=== PATIENT | male | born 1965 | race Caucasian/White ===

== ENCOUNTER 2021-01-08 07:39 | Outpatient (CLI) | payer OTHER, SELFPAY ==
--- NOTE | ~2021-01-08 | XR_ITS ---
XR shoulder RT min 2V DATE: 01/08/2021 08:06 INDICATION: Right shoulder pain for 6 months TECHNIQUE: 4 views COMPARISON: None FINDINGS: No fracture or dislocation, periosteal reaction or bone destruction or abnormal soft tissue calcification. IMPRESSION: No significant abnormality Reviewed, dictated and finalized at location A. IMPRESSION: No significant abnormality
== END 2021-01-08 07:40 | disposition home or self-care (01) ==
LOC: CHSIMG 07:43
PROVIDERS: PCP Internal Medicine; Visit Provider Internal Medicine
DX: M25.511 Pain in right shoulder (principal)
CPT/HCPCS: 73030

== ENCOUNTER → 2021-01-20 17:17 | Outpatient (CLI) | payer OTHER, SELFPAY ==
--- NOTE | ~2021-01-20 | MR_ITS ---
EXAMINATION: MR shoulder RT wo con DATE: 01/20/2021 18:30 INDICATION: Right shoulder pain TECHNIQUE: Magnetic resonance imaging (MRI) of the right shoulder was performed without intravenous c ontrast. Sequences included axial PD-weighted FS FSE, coronal oblique PD-weighted FS FSE, coronal obl ique T2-weighted FS FSE, sagittal PD-weighted FS FSE, and sagittal T1-weighted SE. COMPARISON: None. FINDINGS: Coracoacromial arch: The acromion undersurface is curved in morphology (type II). The coracoacromial ligament is normal. M ild acromioclavicular osteoarthritis. Rotator cuff: The supraspinatus, infraspinatus and teres minor tendons are normal. The subscapularis tendon is norm al. Normal rotator cuff muscle bulk and signal. Biceps tendon, glenoid labrum and glenohumeral cartilage: Long head of the biceps tendon is normal. There is a small tear at the 12:00 position of the glenoid labrum. Jagged linear increased signal at the anterosuperior labrum which appears to extend through t he substance of the labrum as opposed to along the chondral labral interface and would favor anterior extension of the labral tear over a normal sublingual foramen. Glenohumeral cartilage is normal. Fluid: Physiologic amount of fluid in the glenohumeral joint and biceps tendon sheath. No loose osteochondra l bodies. No abnormal fluid signal in the subacromial/subdeltoid bursa to suggest bursitis. Bones: Low signal intensity bone island at the base of the acromion. Normal marrow signal with no edema, fra cture or abnormal marrow replacing process. IMPRESSION: 1. Superior, anterior to posterior tear of the glenoid labrum (SLAP tear) at the 12:00 position of th e glenoid labrum which appears to extend to the 2:00 position of the anterosuperior labrum. 2. Mild acromioclavicular osteoarthritis. Reviewed, dictated and finalized at location B. IMPRESSION: 1. Superior, anterior to posterior tear of the glenoid labrum (SLAP tear) at th e 12:00 position of the glenoid labrum which appears to extend to the 2:00 posi tion of the anterosuperior labrum. 2. Mild acromioclavicular osteoarthritis.
== END ==
PROVIDERS: PCP Internal Medicine; Visit Provider Internal Medicine
DX: M19.011 Primary osteoarthritis, right shoulder (principal); S43.431A Superior glenoid labrum lesion of right shoulder, initial encounter; X58.XXXA Exposure to other specified factors, initial encounter
CPT/HCPCS: 73221

== ENCOUNTER 2021-04-20 10:02 | Outpatient (CLI) | payer OTHER, SELFPAY ==
[2021-04-20 11:12] LABS: Influenza A QL RT-PCR Negative (Negative); Influenza B QL RT-PCR Negative (Negative); SARS-CoV-2 RNA PCR Positive (Negative)
== END 2021-04-20 10:03 | disposition home or self-care (01) ==
LOC: CHSLAB 10:05
PROVIDERS: PCP Internal Medicine; Visit Provider Internal Medicine
DX: U07.1 COVID-19 (principal)
CPT/HCPCS: 87502; C9803; U0003; U0005

== ENCOUNTER 2021-05-29 23:32 | Emergency (ER) | payer OTHER, SELFPAY ==
--- NOTE | ~2021-05-29 | XR_ITS ---
EXAMINATION: XR chest 1V portable EXAM DATE: 05/30/2021 01:09 INDICATION: syncope TECHNIQUE: Portable AP frontal chest x-ray was obtained. There is no prior study for comparison. FINDINGS: Right upper lobe granuloma. The lungs are otherwise clear. There are no pleural effusions. The cardiomediastinal silhouette is within normal limits. There is no pneumothorax suspected. The bones and soft tissues are unremarkable. IMPRESSION: No acute cardiopulmonary findings. Reviewed, dictated and finalized at location A. RAL OFFICE SUPERVISOR
--- NOTE | ~2021-05-29 | CT_ITS ---
EXAMINATION: CT brain wo con EXAM DATE: 05/30/2021 01:09 INDICATION: Syncope TECHNIQUE: Spiral CT of the head was performed without contrast. Axial, coronal and sagittal images were reviewed. The dose-length product (DLP) for this examination was 681.00 mGy-cm. The exposure w as tailored according to patient size, and iterative reconstruction (ASIR) was used as additional dos e reduction technique. There is no prior study for comparison. FINDINGS: There is no acute intraparenchymal hemorrhage. No evidence of intraparenchymal brain mass lesion. No evidence of acute infarction. There is no mass effect or midline shift. The ventricles are normal in size. There are no extra-axial collections. There are no acute calvarial fractures. T he orbits are unremarkable. Soft tissue is unremarkable. Mild ethmoid mucoperiosteal thickening. IMPRESSION: No acute intracranial findings. Reviewed, dictated and finalized at location A. CTOR OF ADMISSIONS
[2021-05-29 23:45] VITALS: BP 130/86; PULSE 66; PULSE 70; RESP 18; TEMP 36.6; O2SAT 98
--- NOTE | 2021-05-29 23:45 | ECG_ITS ---
Measurements Intervals [place] Rate: 64 P: 17 MT: 164 QRS: -6 QRSD: 111 T: 21 QT: 416 QTc: 432 Interpretive Statements SINUS RHYTHM INCOMPLETE RIGHT BUNDLE BRANCH BLOCK BASELINE ARTIFACT- I, II, III, AVR, V1-V2 BORDERLINE ECG Electronically Signed On 05-30-2021 6:37:14 WAREHOUSE STOCKER by Waqas Ruiz D.O.
[2021-05-30 00:16] VITALS: BP 120/70; PULSE 63
[2021-05-30 00:17] VITALS: BP 136/75; BP 139/74; PULSE 74; PULSE 82
[2021-05-30] MEDS: SODIUM CHLORIDE 0.9% IV 1,000 ML 999 ML IV CONT (00:49)
[2021-05-30 00:57] LABS: Basophils Absolute Auto 0.09 K/mm3 (0.00-0.10); Basophils Percent Auto 1.3 % (0.0-1.0); Eosinophils Absolute Auto 0.28 K/mm3 (0.02-0.50); Eosinophils Percent Auto 3.9 % (1.0-6.0); Hemoglobin 13.8 g/dL (14.0-18.0); Immature Granulocyte Absolute 0.02 K/mm3 (0.00-0.00); Immature Granulocyte Percent A 0.3 % (0.0-0.0); Lymphocytes Percent Auto 25.3 % (18.0-42.0); Mean Corpuscular HGB Conc 34.5 g/dL (32.0-36.0); Mean Corpuscular Hemoglobin 30.1 pg (27.0-31.0); Mean Corpuscular Volume 87.3 fL (78.0-102.0); Mean Platelet Volume 10.6 fl (8.7-11.0); Monocytes Absolute Auto 0.63 K/mm3 (0.10-0.90); Monocytes Percent Auto 8.9 % (2.0-11.0); Neutrophils Absolute Auto 4.3 K/mm3 (1.7-7.2); Neutrophils Percent Auto 60.3 % (50.0-70.0); Platelet Count Result 187 K/mm3 (150-420); Red Blood Count 4.58 M/mm3 (4.70-6.10); Red Cell Distribution Width 12.5 % (11.6-14.4); White Blood Count 7.1 K/mm3 (4.8-10.8)
--- NOTE | 2021-05-30 01:01 | PC.NURSE ---
Pt to Ct Scan via w/c at this time. No change in condition. Remains improved.
[2021-05-30 01:14] LABS: Alanine Aminotransferase 74 U/L (16-63); Albumin Level 3.5 g/dL (3.4-5.0); Alkaline Phosphatase 99 U/L (46-116); Anion Gap 7 mmol/L (8-16); Aspartate Amino Transferase 53 U/L (15-37); Bilirubin,Total 0.2 mg/dL (0.00-1.00); Blood Urea Nitrogen 20 mg/dL (7-18); Calcium 8.4 mg/dL (8.5-10.1); Carbon Dioxide 30 mmol/L (21-32); Chloride 105 mmol/L (98-108); Estimated CRCL calculation 77 ml/min; Estimated Glomerular Filt Rate > 60; Glucose 112 mg/dL (70-99); Osmolality Calculated 297 mOsm/kg (285-295); Potassium 3.8 mmol/L (3.5-5.1); Sodium 142 mmol/L (136-145); Total Protein 7.2 g/dL (6.4-8.2); Troponin I 8.6 ng/L (0.00-60.4)
[2021-05-30 01:16] LABS: Ethanol < 3 mg/dL (0-6)
--- NOTE | 2021-05-30 01:30 | PC.NURSE ---
Pt Lt antecubital line would not infuse or flush. Second line started in t Rt hand # 20 Gauge.
[2021-05-30 01:54] LABS: Amphetamine Screen Urine Negative (Negative); Barbiturate Screen Urine Negative (Negative); Benzodiazepines Screen Urine Negative (Negative); Cannabinoid Screen Urine Negative (Negative); Cocaine Screen Urine Negative (Negative); Methadone Screen Urine Negative (Negative); Opiate Screen Urine Negative (Negative); Phencyclidine Screen Urine Negative (Negative)
--- NOTE | 2021-05-30 02:14 | ED.SYNCOPE ---
HPI - Syncope General Chief Complaint: Syncope Stated Complaint: Syncopal episode Time Seen by Provider: 05/29/21 23:35 Source: patient and RN notes reviewed Mode of arrival: ambulatory Limitations: no limitations History of Present Illness complaint: loss of consciousness and collapsed Onset (ago): hour(s) (1) Duration of episode: 30 -: second(s) Description of event: other (denied any acute symptoms.) Prodromal symptoms: none Witnessed: No Context: at rest and standing up Injuries sustained associated with event: none Current symptoms: back to baseline History: other (none) Related Data Home Medications Medication Instructions Recorded Confirmed rosuvastatin [Crestor] 20 mg PO DAILY 05/29/21 05/29/21 tadalafil [Cialis] 20 mg PO DAILY PRN 05/29/21 05/29/21 Allergies Allergy/AdvReac Type Severity Reaction Status Date / Time No Known Allergies Allergy Unverified 12/12/17 08:24 Review of Systems Review of Systems: All systems reviewed & are unremarkable except as noted in HPI and below PMFSH Past Medical History Medical History Erectile disorder due to medical condition in male Exam Const: General: healthy appearing, no acute distress and alert Orientation/consciousness: patient oriented x3 HENMT: Head: normal to inspection Ears: external ears normal and TM's normal bilaterally General nose exam: Normal external nose present and Normal nares present Face and sinus: normal facial exam Mouth: Yes lip normal and Yes moist mucous membranes Teeth and gingiva: dentition normal Eyes: Conjunctivae: conjunctivae normal Pupils: Equal, round and reactive pupils present EOM: EOMs intact bilaterally Neck: Neck: normal visual inspection and no lymphadenopathy Chest: Chest palpation & inspection: normal inspection of the chest Resp: Effort & Inspection: normal respiratory effort Auscultation: clear to auscultation bilaterally Cardio: Rate: regular rate Rhythm: regular rhythm GI: Auscultation: normal bowel sounds Other: soft and non-tender abdomen : General: Yes bladder normal to palpation and Yes no CVA tenderness Male General Exam: Yes normal external exam Back/Spine/Pelvis: Back: no CVA tenderness Skin: General skin exam: normal color Neuro: General: patient oriented x3, moves all extremities, no meningeal signs, no focal motor deficits and CN's II-XI intact bilaterally Extrem: General: normal to inspection and no pedal edema Psych: Appearance: grossly normal and well kempt Mental Status: mental status grossly normal Affect: normal affect Thought content: Yes Normal thought content present Course Course Emergency Course: Pt was stable in rhe ED with no acute neuro abnormality. Reevaluation(s) Reevaluation #1: Pt had stable VS. was alert and responsive. Date: 05/30/21 Time: 00:30 Vital Signs Vital signs: Vital Signs Temperature 36.6 C 05/29/21 23:45 Pulse Rate 70 05/29/21 23:45 Respiratory Rate 18 05/29/21 23:45 Blood Pressure 130/86 05/29/21 23:45 Pulse Oximetry 98 05/29/21 23:45 Temperature 36.6 C 05/30/21 02:24 Pulse Rate 63 05/30/21 02:24 Respiratory Rate 18 05/30/21 02:24 Blood Pressure 121/84 05/30/21 02:24 Pulse Oximetry 99 05/30/21 02:24 MDM - Syncope Differential Diagnosis Differential diagnosis: Likely syncope due to orthostatic hypotension, vasovagal syncope and dehydration Medical Records Attestation: I reviewed the patient's medical records. Lab Data Attestation: I reviewed the patient's lab results. Result diagrams: 05/30/21 00:52 05/30/21 00:52 Labs: Lab Results 05/30/21 05/30/21 05/30/21 Range/Units 00:35 00:52 00:52 WBC 7.1 (4.8-10.8) K/mm3 RBC 4.58 L (4.70-6.10) M/mm3 Hgb 13.8 L (14.0-18.0) g/dL Hct 40.0 (40.0-54.0) % MCV 87.3 (78.0-102.0) fL MCH 30.1 (27.0-31.0) pg MCHC 34.5 (32.0-36.0
[2021-05-30 02:24] VITALS: BP 121/84; PULSE 63; RESP 18; TEMP 36.6; O2SAT 99
== END 2021-05-30 02:29 | disposition home or self-care (01) ==
PROVIDERS: Emergency Provider Emergency Medicine; PCP Internal Medicine
DX: I95.1 Orthostatic hypotension (principal); Z79.899 Other long term (current) drug therapy
CPT/HCPCS: 36415; 70450; 71045; 80053; 80307; 84484; 85025; 93005; 96360; 96361; 99283; 99284; J7030

== ENCOUNTER 2022-10-06 08:11 | Outpatient (CLI) | payer OTHER, SELFPAY ==
--- NOTE | ~2022-10-06 | MR_ITS ---
MRI of the brain Clinical History: Headache, TIA Technique: Axial and sagittal T1-weighted images were acquired. These were followed by axial T2-weigh kennedy, diffusion weighted, gradient, and FLAIR images. Following intravenous administration of 19 cc Mu ltiHance gadolinium, T1-weighted fat-sat imaging was performed in the axial and coronal planes. Findings: No abnormal signal seen in the brain parenchyma. No acute infarct, intracranial hemorrhage, or mass lesion. Ventricles and subarachnoid spaces are unremarkable. Orbits are unremarkable. Paranasal sinuses and m astoid air cells are clear. Major intracranial flow voids appear intact. Sagittal midline structures are intact. No abnormal postcontrast enhancement identified. IMPRESSION: Unremarkable exam. Reviewed, dictated and finalized at location M. IMPRESSION: Unremarkable exam.
--- NOTE | ~2022-10-06 | MR_ITS ---
MRA NECK History: TIA, headache, blurred vision Technique: MRA imaging of the neck was performed with and without contrast. Postcontrast MR imaging w as performed following intravenous demonstration of 19 cc of MultiHance gadolinium. Findings: Right vertebral is markedly hypoplastic. Left vertebral artery is unremarkable. Right and l eft common carotid arteries and the right and left cervical internal carotid arteries and external ca rotid arteries appear normal. The proximal right internal carotid artery demonstrates 0% stenosis rel ative to the normal distal artery lumen diameter. The proximal left internal carotid artery demonstra jewle 0% stenosis relative to the normal distal artery lumen diameter. Impression: Hypoplastic right vertebral artery. No other significant abnormality. Reviewed, dictated and finalized at location . Impression: Hypoplastic right vertebral artery. No other significant abnormality.
--- NOTE | ~2022-10-06 | MR_ITS ---
MRA HEAD History: TIA Technique: 3D time of flight MRA of the head is performed. Findings: The right and left distal vertebral arteries and the basilar and posterior cerebral arterie s are normal. Right and left distal internal carotid arteries and anterior and middle cerebral arteri es are normal. There is no aneurysm, stenosis, or occlusion. Impression: No occlusion, stenosis, or aneurysm. Reviewed, dictated and finalized at location . Impression: No occlusion, stenosis, or aneurysm.
== END 2022-10-06 08:12 | disposition home or self-care (01) ==
PROVIDERS: PCP Internal Medicine; Visit Provider Internal Medicine
DX: G45.9 Transient cerebral ischemic attack, unspecified (principal); R51.9 Headache, unspecified; H53.8 Other visual disturbances; R47.01 Aphasia; Q27.8 Other specified congenital malformations of peripheral vascular system
CPT/HCPCS: 70544; 70549; 70553; A9577

== ENCOUNTER 2022-10-07 13:21 | Outpatient (CLI) | payer OTHER, SELFPAY ==
--- NOTE | 2022-10-07 01:00 | ECHO_ITS ---
Patient Info Name: Suhas Queen Age: 57 years : 1965 Gender: Male Ht: 72 in Wt: 200 lbs BSA: 2.16 m2 HR: 63 bpm BP: 119 / 74 mmHg Heart Rhythm: Sinus Rhythm Technical Quality: Good Exam Date: 10/07/2022 1:24 PM Exam Location: [facility] Patient Status: Outpatient Admit Date: 10/07/2022 Staff Ordering Physician: Hung Palomo MD Home Insurance Agent: Aida Garcia RDCS Attending Provider: Hung Palomo MD Referring Physician: Dewey MAN; Exam Type: CA echo doppler color flow Study Info Indications - tia, bradycardia Complete two-dimensional, color flow and Doppler transthoracic echocardiogram is performed. Summary 1. Complete two-dimensional, color flow and Doppler transthoracic echocardiogram is performed. 2. Left ventricular chamber dimension is normal. 3. Left ventricular systolic function is normal, estimated at 60-65%. 4. The left ventricular diastolic function is grade II diastolic dysfunction. 5. E/e' 6 is not elevated. 6. Left atrial chamber dimension is mildly enlarged. 7. There is mild aortic valve sclerosis. 8. There is mild aortic valve regurgitation. 9. There is mild tricuspid valve regurgitation. 10. No pulmonary hypertension, estimated pulmonary arterial systolic pressure is 25 mmHg. 11. There is trace pulmonic regurgitation. Left Ventricle E/e' 6 is not elevated. Left ventricular chamber dimension is normal. Left ventricular systolic function is normal, estimated at 60-65%. The left ventricular diastolic function is grade II diastolic dysfunction. Right Ventricle Right ventricular systolic function is normal and with normal TAPSE 3.4 cm. Right ventricular chamber dimension is normal. Left Atria Left atrial chamber dimension is mildly enlarged. Right Atria Right atrial chamber dimension is normal. Aortic Valve The aortic valve is trileaflet. There is mild aortic valve sclerosis. There is no aortic valve stenosis. There is mild aortic valve regurgitation. Pulmonic Valve There is trace pulmonic regurgitation. Mitral Valve There is no mitral valve stenosis. There is no mitral valve regurgitation. Tricuspid Valve There is mild tricuspid valve regurgitation. No pulmonary hypertension, estimated pulmonary arterial systolic pressure is 25 mmHg. Pericardium/Pleural There is no pericardial effusion. Inferior Vena Cava Normal inferior vena cava with >50% collapse upon inspiration consistent with normal right atrial pressure, 5 mmHg. Aorta The aortic root size at the sinus of Valsalva is normal. Left Ventricular Outflow Tract Name Value Normal LVOT 2D LVOT Diameter 2.3 cm LVOT Doppler LVOT Peak Velocity 111 cm/s LVOT Peak Gradient 5 mmHg LVOT Mean Gradient 2 mmHg LVOT VTI 21 cm LVOT VTI/AV VTI Ratio 0.8 LVOT Stroke Volume 91 ml Pulmonic Valve Name Value Normal RVOT Doppler
--- NOTE | 2022-11-10 18:30 | WPDHOLTEREM ---
Holter/Event Monitor Holter/Event Monitor Date of procedure: 10/10/22 Holter/Event Procedure: Event Monitor Indications: Bradycardia Conclusion: 1. 30 day event monitor between 10/10/22-11/08/22. This is an event trigger monitor. There are 7 available transmissions for analysis. 2. Based on available transmissions, underlying rhythm is sinus rhythm. HR range 63-77 bpm. 3. No supraventricular or ventricular arrhythmias. 4. No significant pauses greater than 2 seconds. 5. No symptoms available for correlation.
== END 2022-10-07 13:22 | disposition home or self-care (01) ==
PROVIDERS: PCP Internal Medicine; Visit Provider Internal Medicine
DX: G45.9 Transient cerebral ischemic attack, unspecified (principal); R00.1 Bradycardia, unspecified; I08.2 Rheumatic disorders of both aortic and tricuspid valves
CPT/HCPCS: 93270; 93306

== ENCOUNTER 2024-08-09 07:13 | Outpatient (CLI) | payer OTHER, SELFPAY ==
--- NOTE | ~2024-08-09 | US_ITS ---
EXAMINATION: US soft tissue UE RT DATE: 08/09/2024 07:36 INDICATION: Right elbow injury and swelling. TECHNIQUE: Multiple grayscale and Doppler ultrasound images of the right upper limb were obtained. COMPARISON: None FINDINGS: There is no abnormal mass or fluid collection in the patient's area of concern. IMPRESSION: 1. No abnormal mass or fluid collection in the patient's area of concern near the right elbow. Reviewed, dictated and finalized at location L. IMPRESSION: 1. No abnormal mass or fluid collection in the patient's area of concern near t he right elbow.
--- OUTSIDE RECORDS SUMMARY | 2024-08-09 07:17 | XMS_ITS | Referral Summary ---
Author Organization [facility] [place] [address] Address [address] [place] [address] Care Team Providers Care Margarine Churn Operator Name Role Phone Hung Palomo MD Primary Care Provider Allergies Active Allergy Reactions Criticality Noted Date Comments Tadalafil Syncope High 02/24/2023 Medications rosuvastatin (CRESTOR) 10 mg tablet Take 1 tablet (10 mg total) by mouth daily 02/10/2023 Active Active Problems Problem Noted Date Diagnosed Date Palpitations 09/19/2023 Dizziness 02/24/2023 Bradycardia 02/24/2023 Mixed hyperlipidemia 02/24/2023 Primary hypertension 02/24/2023 Vision changes 02/24/2023 Social History Tobacco Use Types Packs/Day Years Used Date Smoking Tobacco: Never Smokeless Tobacco: Never Tobacco Cessation:Counseling Given: Not Answered Personal Safety Answer Date Recorded Getting School Help Needed Not on file 06/06 Sex and Gender Information Value Date Recorded Sex Assigned at Not on file Legal Sex Male 3:04 PM CDT Gender Identity Not on file Sexual Orientation Not on file Last Filed Vital Signs Vital Sign Reading Time Taken Comments Blood Pressure 134/70 09/19/2023 12:09 PM CDT Pulse 67 09/19/2023 12:09 PM CDT Temperature - - Respiratory Rate - - Oxygen Saturation 94% 09/19/2023 12:09 PM CDT Inhaled Oxygen Concentration - - Weight 94.8 kg (209 lb) 09/19/2023 12:09 PM CDT Height 182.9 cm (6') 09/19/2023 12:09 PM CDT Body Mass Index 28.35 09/19/2023 12:09 PM CDT Plan of Treatment Not on file Insurance [facility] Address: [address] [place] [id number] [facility] CHO[employer] [employer]/[employer] Address: [address] [place] [id number] Care Teams Margarine Churn Operator Relationship Specialty Start Date End Date Hung Palomo MD [address] [place] [address] PCP - General Internal Medicine 09/27/22
--- OUTSIDE RECORDS SUMMARY | 2024-08-09 07:17 | XMS_ITS | Clinical Summary ---
Author Organization [facility] [place] [address] Address [address] [place] [address] Care Team Providers Care Manager Valuation Name Role Phone Hung Palomo MD Primary Care Provider Allergies Active Allergy Reactions Criticality Noted Date Comments Tadalafil Syncope High 02/24/2023 Medications rosuvastatin (CRESTOR) 10 mg tablet Take 1 tablet (10 mg total) by mouth daily 02/10/2023 Active Active Problems Problem Noted Date Diagnosed Date Palpitations 09/19/2023 Dizziness 02/24/2023 Bradycardia 02/24/2023 Mixed hyperlipidemia 02/24/2023 Primary hypertension 02/24/2023 Vision changes 02/24/2023 Surgical History Surgery Date Site/Laterality Comments LASIK SURGERY OF LIP Medical History Medical History Date Comments Bradycardia Hyperlipidemia Scrotal varices Aphasia Syncope Family History Medical History Relation Name Comments Glaucoma Father Hypertension Father Lung cancer Father Cholelithiasis Mother Dementia Mother Relation Name Status Comments Father Mother Alive Social History Tobacco Use Types Packs/Day Years Used Date Smoking Tobacco: Never Smokeless Tobacco: Never Tobacco Cessation:Counseling Given: Not Answered Personal Safety Answer Date Recorded Getting School Help Needed Not on file 06/06 Sex and Gender Information Value Date Recorded Sex Assigned at Not on file Legal Sex Male 3:04 PM CDT Gender Identity Not on file Sexual Orientation Not on file Obstetrics History Last Filed Vital Signs Vital Sign Reading [...] 09/19/2023 12:09 PM CDT Plan of Treatment Health Maintenance Due Date Last Done Comments Colon Cancer Screening-Colonoscopy 1965 Depression Screening 1965 Hepatitis C Screening 1965 Prostate Cancer Screening-PSA 1965 Hepatitis B Screening 1983 Regular Well Visit/Exam 18-64 1983 Zoster Vaccine (1 of 2) 2015 Covid-19 Vaccine (4 - 2023-2 5 season) 2024 06/05/2021, 09/11/2020, 08/14/2020 Influenza Vaccine (#1) 2024 , 01/27/2021 DTaP/Tdap/Td Vaccine (2 - Td or Tdap) 08/19/2027 08/18/2017 Pneumococcal vaccine <65 Aged Out No longer eligible based on patient's age to complete this topic Insurance [facility] CHO[facility] PL[facility] PL[facility] Care Teams Manager Valuation Relationship Specialty Start Date End Date Hung Palomo MD [address] [place] [id number] PCP - General Internal Medicine 09/27/22
== END 2024-08-09 07:14 | disposition home or self-care (01) ==
PROVIDERS: PCP Internal Medicine; Visit Provider Internal Medicine
DX: M25.421 Effusion, right elbow (principal)
CPT/HCPCS: 76882